=== PATIENT | female | born 1935 | race Caucasian/White ===

== ENCOUNTER 2017-03-31 17:10 | Inpatient (IN) | payer OTHER ==
[~2017-03-31] VITALS: Ht 154.9 cm; Wt 127.0 kg
[2017-03-31 18:16] LABS: BASOPHIL % 0.1 % (0-2); PLATELET COUNT 284 x10^3mcL (130-400)
[2017-03-31 18:18] LABS: RED CELL DISTRIBUTION WIDTH 14.8 % (11.5-14.5)
[2017-03-31 18:21] LABS: CHLORIDE SERUM 98 mmol/L (98-107); GLUCOSE SERUM 205 mg/dL (74-106); POTASSIUM SERUM 3.5 mmol/L (3.5-5.1); SODIUM SERUM 132 mmol/L (136-145)
[2017-03-31 18:26] LABS: ALKALINE PHOSPHATASE 152 U/L (46-116); ALT/SGPT 31 U/L (14-59); AST/SGOT 29 U/L (15-37); BILIRUBIN TOTAL 0.5 mg/dL (0.20-1.00); CHOLESTEROL 144 mg/dL (<200); HDL CHOLESTEROL 37 mg/dL (40-60); TOTAL PROTEIN, SERUM 6.9 g/dL (6.4-8.2)
[2017-03-31 18:27] LABS: ALBUMIN 2.5 g/dL (3.4-5.0)
[2017-03-31] MEDS ORDERED: METFORMIN HCL1000 MG (18:59)
[2017-03-31] MEDS ORDERED: MAC100 (18:59)
[2017-03-31] MEDS ORDERED: LOSARTAN POTASS50 M1 PO (18:59)
[2017-03-31] MEDS ORDERED: FENOFIBRATE160 M1 PO (18:59)
[2017-03-31] MEDS ORDERED: REQUIP0.5 MG PO (19:00)
[2017-03-31] MEDS ORDERED: NIFEDICAL XL30 MG (19:02)
[2017-03-31] MEDS ORDERED: EC NAPROSYN500 MG PO (19:02)
[2017-03-31] MEDS ORDERED: ASPIR 8181 MG PO (19:02)
[2017-03-31] MEDS ORDERED: COLACE100 MG PO (19:02)
[2017-03-31] MEDS ORDERED: VITAMIN D22000 I1 PO (19:02)
[2017-03-31] MEDS ORDERED: OXYBUTYNIN CHLOR5 MG (19:03)
[2017-03-31] MEDS ORDERED: ADALAT CC30 MG (19:03)
[2017-03-31 19:04] LABS: microscopic required? YES; urine erythrocyte 2+ (NEGATIVE)
[2017-03-31 19:59] LABS: T3 TOTAL 0.8 ng/mL
[2017-03-31 20:00] LABS: CHOLESTEROL/HDL RATIO 4.1; MAGNESIUM 1.6 mg/dL (1.8-2.4)
[2017-03-31 20:08] LABS: FREE T4 1.32 ng/dL (0.76-1.46); FREE THYROXINE INDEX 3.3 ug/dL (1.4-4.5); T4(THYROXINE) 8.4 ug/dL (4.7-13.3)
[2017-03-31 20:25] VITALS: BP 156/64
[2017-03-31 20:39] VITALS: BP 156/64
[2017-04-01] MEDS ORDERED: METFORMIN HYD1000 M2 PO (00:49)
[2017-04-01 04:41] VITALS: BP 156/64
[2017-04-01 05:47] VITALS: BP 127/54
[2017-04-01 06:23] LABS: BASOPHIL % 0.1 % (0-2); PLATELET COUNT 255 x10^3mcL (130-400)
[2017-04-01 06:32] LABS: RED CELL DISTRIBUTION WIDTH 15.1 % (11.5-14.5)
[2017-04-01 06:39] LABS: CALCIUM 8.9 mg/dL (8.5-10.1); CARBON DIOXIDE 29.1 mmol/L (21-32); CHLORIDE SERUM 101 mmol/L (98-107); CREATININE SERUM 1.1 mg/dL (0.6-1.0); GLUCOSE SERUM 146 mg/dL (74-106); MAGNESIUM 1.7 mg/dL (1.8-2.4); PHOSPHOROUS 3.8 mg/dL (2.5-4.9); POTASSIUM SERUM 4.1 mmol/L (3.5-5.1); SODIUM SERUM 135 mmol/L (136-145)
[2017-04-01 09:32] VITALS: BP 123/61
[2017-04-01 14:00] VITALS: BP 148/62
[2017-04-01 17:08] VITALS: BP 135/68
[2017-04-01 22:22] VITALS: BP 147/81
[2017-04-02 05:41] VITALS: BP 146/61
[2017-04-02 06:07] LABS: BASOPHIL % 0.2 % (0-2); PLATELET COUNT 330 x10^3mcL (130-400)
[2017-04-02 06:16] LABS: RED CELL DISTRIBUTION WIDTH 14.9 % (11.5-14.5)
[2017-04-02 06:17] LABS: CALCIUM 9.4 mg/dL (8.5-10.1); CARBON DIOXIDE 27.7 mmol/L (21-32); CHLORIDE SERUM 99 mmol/L (98-107); CREATININE SERUM 1.1 mg/dL (0.6-1.0); GLUCOSE SERUM 133 mg/dL (74-106); MAGNESIUM 1.8 mg/dL (1.8-2.4); PHOSPHOROUS 2.9 mg/dL (2.5-4.9); POTASSIUM SERUM 4.1 mmol/L (3.5-5.1); SODIUM SERUM 133 mmol/L (136-145)
[2017-04-02] MEDS ORDERED: CLEOCIN HCL300 MG PO (08:44)
[2017-04-02] MEDS ORDERED: LEVAQUIN750 MG PO (08:45)
[2017-04-02] MEDS ORDERED: LAC PO (08:46)
[2017-04-02] MEDS ORDERED: PROVENTIL0.09 MG/A1 INH (08:49)
[2017-04-02 10:00] VITALS: BP 159/63
[2017-04-02 12:07] VITALS: BP 159/63
[2017-04-02] MEDS ORDERED: [UNRECOGNIZED DRUG - CODE] PO (12:37)
== END 2017-04-02 13:30 | disposition home or self-care (01) | DRG 177 ==
LOC: ED 17:10 → DU 19:10
PROVIDERS: Emergency Medicine; Family Medicine; ADMIT Family Medicine
DX: J69.0 Pneumonitis due to inhalation of food and vomit (principal); I50.43 Acute on chronic combined systolic (congestive) and diastolic (congestive) heart failure; N17.0 Acute kidney failure with tubular necrosis; E43 Unspecified severe protein-calorie malnutrition; Z68.42 Body mass index [BMI] 45.0-49.9, adult; N39.0 Urinary tract infection, site not specified; E87.1 Hypo-osmolality and hyponatremia; D68.69 Other thrombophilia; E83.42 Hypomagnesemia; E11.65 Type 2 diabetes mellitus with hyperglycemia; S80.02XD Contusion of left knee, subsequent encounter; E86.0 Dehydration; M54.32 Sciatica, left side; M54.31 Sciatica, right side; G25.81 Restless legs syndrome; E66.01 Morbid (severe) obesity due to excess calories; Z79.82 Long term (current) use of aspirin; Z79.84 Long term (current) use of oral hypoglycemic drugs; W01.0XXD Fall on same level from slipping, tripping and stumbling without subsequent striking against object, subsequent encounter
CPT/HCPCS: 82962; 83880; 84439; 94150; J1644; J1956; J2405; J3010; J3490; J7030; Q0092